=== PATIENT | female | born 1975 | race Caucasian/White ===

== ENCOUNTER 2017-03-22 21:11 | Outpatient (CLI) | payer SELFPAY | END 2017-03-22 21:12 | disposition EMS.NT | LOC: EMS 21:11 | PROVIDERS: ATTEND Surgery | DX: M54.2 Cervicalgia (principal); V53.5XXA Driver of pick-up truck or van injured in collision with car, pick-up truck or van in traffic accident, initial encounter; Y92.413 State road as the place of occurrence of the external cause ==

== ENCOUNTER 2017-05-03 09:50 | Outpatient (CLI) | payer OTHER ==
[2017-05-04 15:21] LABS: HEPATITIS C ANTIBODY NON-REACTIVE (NON-REACTIVE); HIV AG/AB 4TH GEN NON-REACTIVE (NON-REACTIVE)
== END 2017-05-03 09:51 | disposition home or self-care (01) ==
LOC: LAB 09:50
PROVIDERS: ATTEND Nurse Practitioner Obstetrics & Gynecology
DX: Z11.3 Encounter for screening for infections with a predominantly sexual mode of transmission (principal)
CPT/HCPCS: 36415; 81599; 86695; 86696; 86803; 87389